=== PATIENT | female | born 2005 | race Caucasian/White ===

== ENCOUNTER → 2024-05-01 16:07 | Emergency (ER) | payer SELFPAY ==
[2024-05-01 16:09] VITALS: BP 128/80
[2024-05-01 16:26] VITALS: BMI 18.0
[2024-05-01 16:42] VITALS: BP 124/60
--- NOTE | 2024-05-01 17:06 | ED.GENMED ---
History of Present Illness
General
Chief Complaint: Chest Problem
Source: patient and family
Exam Limitations: none
Time Seen by Provider: 05/01/24 16:15
Nursing documentation reviewed up to this point in time: agreed with
History of Present Illness
History of Present Illness:
Patient is a 18-year-old female presenting to the emergency department with acute onset right chest pain. Patient states around lunchtime she noticed a sharp pain in her right mid chest with a dull ache in her mid back. Patient states she became
extremely anxious and started feel short of breath and lightheaded, as well. Patient does have a history of a spontaneous pneumothorax in May 2023. She states pain is less severe although similar in quality. Patient came to the emergency
department to rule out pneumothorax.
Patient denies any fever, chills, cough, numbness/tingling. No lower extremity pain patient denies any recent surgery or recent travel. No exogenous hormone use. No personal or family history of blood clots.
Patient states that she was admitted to [facility] for 5 days last May with chest tube for pneumothorax.
Phy Exam
Physical Exam
Physical Exam:
Vitals: Tachycardic, otherwise vital signs stable. Oxygen saturation 100 on room air.
General: Patient is anxious appearing, no acute respiratory distress.
Skin: Warm and dry, no rashes or lesions
Head: Normocephalic, atraumatic
Eyes: Sclera nonicteric. EOMs intact. No nystagmus.
Throat: Protecting airway
Neck: Normal ROM, no cervical spine tenderness, no meningismus
Cardiac: Regular rate and rhythm, no murmurs. Reproducible right lateral chest wall tenderness. No overlying ecchymoses, crepitus.
Pulm: Mildly increased work of breathing, no wheezes, rales, rhonchi heard on exam. Oxygen saturation 100 on room air
Abdomen: Abdomen soft. No abdominal tenderness.
Extremities: No evidence of cyanosis or edema
Neuro: AAOx3. CN II-XII intact. No focal neurologic deficits.
Psychiatric: Anxious.
Course
Orders/Labs/Results
Orders:
Orders
05/01/24 16:12
Chest [CR Chest - 2 Views ] Urgent
Comment:
Reason For Exam: SOB, chest pain
05/01/24 16:18
EKG [Electrocardiogram (*1)] Urgent
Reason for Study: Chest Pain
EKG- Treatment ONCE
05/01/24 17:01
Ketorolac [Toradol] 15 mg IV NOW STA
Test Result ONCE
05/01/24 17:13
Complete Blood Count/With Diff Urgent
Comprehensive Metabolic Panel Urgent
D-Dimer Urgent
HCG, Serum Qualitative Screen Urgent
Lipase Urgent
Abnormal Lab Results
05/01/24
17:13
RBC 4.04 L 10^6/uL
(4.20-5.40)
Hct 35.2 L %
(37.0-47.0)
MCH 31.4 H pg
(27.0-31.0)
Lymphocytes % 18.9 L %
(20.5-51.1)
Chloride 108 H mmol/L
(98-107)
Carbon Dioxide 18 L mmol/L
(22-30)
Glucose 100 H mg/dl
(70-99)
Calcium 10.6 H mg/dl
(8.4-10.2)
Albumin 5.2 H g/dl
(3.5-5.0)
05/01/24 17:13
05/01/24 17:13
Vital Signs
Initial and Last Documented VS:
Initial Vital Signs
Temp Pulse Resp BP Pulse Ox
97.9 F 117 26 128/80 100
05/01/24 16:09 05/01/24 16:09 05/01/24 16:09 05/01/24 16:09 05/01/24 16:09
Last Documented Vital Signs
Temp Pulse Resp BP Pulse Ox
97.9 F 78 17 124/60 98
05/01/24 16:09 05/01/24 18:15 05/01/24 18:15 05/01/24 16:42 05/01/24 18:15
MDM/Problems Addressed
Differential Diagnosis Includes:
Not limited to: Spontaneous pneumothorax, muscle strain, costochondritis, pleurisy, PE, pneumonia, etc.
MDM/Problems Addressed:
18 year old female w/ hx spontaneous right sided pneumothorax with acute onset right chest pain and shortness of breath. This occurred while sitting at her desk. Symptoms less severe although similar in quality to prior spontaneous pneumothorax.
No associated fever, cough, dizziness. Patient tachycardic and tachypneic on arrival. She is afebrile. Oxygen saturation 100 on room air. Exam as above. Patient very anxious appearing. Lungs are clear bilaterally. She is tachycardic although
normal heart rhythm. No lower extremity edema or clinical evidence of DVT on exam. EKG obtained in triage is sinus tachycardia without any acute ischemic changes. A chest x-ray was informed immediately upon arrival to emergency department shows
no evidence of pneumothorax or other acute abnormality.
Given patient still remains with persistent symptoms�will check lab work and D-dimer to rule out PE, although patient has no risk factors for PE specifically. Will give dose of Toradol.
Chronic conditions affecting care:
History of spontaneous
Acute Exacerbation and/or Progression of Chronic Illness:
N/A
*Radiology
Radiology exam reviewed: preliminary read by ED provider (No pneumothorax) and radiology read reviewed
*Pulse Oximetry
Patient hypoxic: no
*EKG
Interpreted by ED Provider?: Yes
EKG Intrepretation Date: 05/01/24
Interpretation: normal
Comparison EKG: no comparison EKG present
Heart Rate: 111
Rate: tachycardiac
Rhythm: sinus
[place]: normal axis
Interval: normal interval
QRS Pattern: normal QRS
Ischemia: no ischemia
*[employer] Interpretation
Rate: normal
Interpretation: normal
Heart Rate: 78
Rhythm: sinus
*Critical Care Note
Total Time (30-74mins, 75-104mins- exclusive of procedures): Not Applicable
Update Note
Update Note:
Update: Labs reviewed. No clinically significant abnormalities. Mildly acidotic likely secondary to hyperventilation on arrival. Fortunately D-dimer was negative. Do not suspect PE. Upon reassessment�vital signs have normalized. Patient does
report some improvement following Toradol. It is possible that patient is experiencing a musculoskeletal chest pain. Do not suspect acute emergent process given negative workup and normalization of vital signs. Feel patient is stable for
discharge with close return precautions. Case discussed with attending physician.
ED Attending Note
-
Portions of this chart may have been created with voice recognition software.� Occasional wrong word or��sound alike� substitutions may have occurred due to the inherent limitations of voice recognition software.
Discharge Plan
Departure
Patient Disposition: Home (Routine Discharge)
Date of Disposition: 05/01/24
Time of Disposition: 18:12
Patient with high blood pressure during this ER visit?: No
Condition: Good
Covid-19: Not Applicable
Discharge Problem:
Anterior chest wall pain
Instructions: Costochondritis, Chest Pain
Prescriptions:
No Action
No Current Medications
0
Referrals:
[facility] [Provider Group] - Call in 1-3 days for appt
Luigi Mcwilliams MD [Active] -
Activity Restrictions/Additional Instructions:
RETURN TO THE EMERGENCY DEPARTMENT WITH ANY FEVERS, CHEST PAIN, SHORTNESS OF BREATH/DIFFICULTY BREATHING, WORSENING IN CURRENT SYMPTOMS, OR ANY OTHER CONCERNS
-As discussed�your chest x-ray showed no evidence of a pneumothorax or other acute abnormalities today.
-You should continue to take Tylenol and/or Motrin as needed for discomfort. Follow-up with pulmonology for further evaluation/management.
-You should establish care with a primary care, as well for further management
Monitor your symptoms very closely and return to the emergency department with any acute worsening/new symptoms or any other concerns
Interventions
Interventions:
*Risk Screen - Suicide Last Done: 05/01/24 16:09
*General Assessment Last Done: 05/01/24 16:09
*Neglect/Abuse Screening Last Done: 05/01/24 16:09
ED- Fall Risk Assessment Last Done: 05/01/24 18:37
*ED COVID-19 Vaccine History Last Done: 05/01/24 18:37
*Nursing Disposition Last Done: 05/01/24 18:37
ED- Cardiac Assessment Last Done: 05/01/24 16:26
ED- Pulmonary Assessment Last Done: 05/01/24 16:26
Discharge Date and Time
Print Language: THAI
[2024-05-01] MEDS: TORADOL 15 MG IV (17:20)
[2024-05-01 17:29] LABS: % Basophils 0.3 % (0-2); % Eosinophils 0.6 % (0-6); % Immature Granulocytes 0.3 % (0-0.5); % Lymphocytes 18.9 % (20.5-51.1); % Monocytes 5.7 % (1.7-9.3); % Neutrophils 74.2 % (42.2-75.2); Absolute Lymphocytes 1.3 10^3/uL (1.2-3.4); Absolute Monocytes 0.4 10^3/uL (0.1-0.6); Absolute Neutrophils 5.1 10^3/uL (1.4-6.5); Hematocrit 35.2 % (37.0-47.0); Hemoglobin 12.7 g/dL (12.0-16.0); Mean Corp Hgb Conc. 36.1 g/dL (33.0-37.0); Mean Corpuscular Hgb 31.4 pg (27.0-31.0); Mean Corpuscular Volume 87.1 fL (81.0-99.0); Mean Platelet Volume 9.8 fL (7.4-10.4); Nucleated Red Blood Cells % 0 %; Platelet Count 327 10^3/uL (130-400); Red Blood Cell Count 4.04 10^6/uL (4.20-5.40); Red Cell Dist. Width 12.2 % (11.5-14.5); White Blood Cell Count 6.9 10^3/uL (4.8-10.8)
[2024-05-01 17:40] LABS: HCG, Serum Qualitative Screen Negative
[2024-05-01 17:43] LABS: ALT (SGPT) 16 U/L (0-35); AST (SGOT) 23 U/L (14-36); Albumin 5.2 g/dl (3.5-5.0); Alkaline Phosphatase 62 U/L (38-126); Blood Urea Nitrogen 8 mg/dl (7-17); Calcium 10.6 mg/dl (8.4-10.2); Carbon Dioxide 18 mmol/L (22-30); Chloride 108 mmol/L (98-107); Estimated Creatinine Clearance 93 ml/min; Glucose 100 mg/dl (70-99); Lipase 70 U/L (23-300); Potassium 3.9 mmol/L (3.5-5.1); Sodium 142 mmol/L (135-145); Total Bilirubin 0.5 mg/dl (0.2-1.3); Total Protein 7.7 g/dl (6.3-8.2); eGFR > 60.00
[2024-05-01 17:52] LABS: D-Dimer 0.29 ug/mlFEU (0.00-0.50)
== END | disposition home or self-care (01) ==
LOC: EMR 16:07
PROVIDERS: Physician Assistant; EMERGENCY PHYSICIAN Student in an Organized Health Care Education/Training Program
DX: R07.89 Other chest pain (principal); R06.02 Shortness of breath
CPT/HCPCS: 99285; 96374; 71046; 80053; 83690; 84703; 85025; 85379; 93005